=== PATIENT | male | born 1990 ===

== ENCOUNTER → 2024-03-09 13:22 | Outpatient (REF) | payer BC, SELFPAY | LOC: RAD 13:22 | PROVIDERS: ATTENDING PHYSICIAN Specialist; FAMILY PHYSICIAN Hospitalist | DX: N50.9 Disorder of male genital organs, unspecified (principal) | CPT/HCPCS: 76870; 93976 ==

== ENCOUNTER 2024-03-16 06:06 | Day surgery (SDC) | payer BC, SELFPAY ==
[2024-03-16] VITALS (13 sets, daily range): BP systolic 108–131; BP diastolic 58–77; BMI 24.4
[2024-03-16] MEDS: DILAUDID 0.5 MG IV (09:32)
[2024-03-16] MEDS: ROXICODONE 5 MG PO (11:20)
--- NOTE | 2024-03-16 11:23 | PTCARENOTE ---
Patient dressed. Patient was just given an Oxycodone for pain 09/15. Will monitor patient for 15 min then d/c.
== END 2024-03-16 11:38 | disposition home or self-care (01) ==
LOC: SDS 06:06
PROVIDERS: ATTENDING PHYSICIAN Specialist
DX: C62.92 Malignant neoplasm of left testis, unspecified whether descended or undescended (principal)
CPT/HCPCS: 54530; 88309; 88341; 88342

== ENCOUNTER → 2024-04-02 10:37 | Outpatient (REF) | payer BC, SELFPAY | LOC: HWRAD 10:37 | PROVIDERS: ATTENDING PHYSICIAN Specialist; FAMILY PHYSICIAN Hospitalist | DX: C62.90 Malignant neoplasm of unspecified testis, unspecified whether descended or undescended (principal) | CPT/HCPCS: 74177; Q9967 ==

== ENCOUNTER → 2024-04-24 12:48 | Outpatient (REF) | payer BC, SELFPAY | LOC: HWRAD 12:48 | PROVIDERS: ATTENDING PHYSICIAN Internal Medicine Hematology & Oncology; FAMILY PHYSICIAN Hospitalist | DX: C62.92 Malignant neoplasm of left testis, unspecified whether descended or undescended (principal) | CPT/HCPCS: 71250 ==

== ENCOUNTER → 2024-07-11 12:57 | Outpatient (REF) | payer BC, SELFPAY ==
[2024-07-11 15:47] LABS: % Basophils 0.5 % (0-2); % Eosinophils 2.6 % (0-6); % Immature Granulocytes 0.2 % (0-0.5); % Lymphocytes 38.3 % (20.5-51.1); % Monocytes 5.8 % (1.7-9.3); % Neutrophils 52.6 % (42.2-75.2); Absolute Eosinophils 0.1 10^3/uL (0-0.7); Absolute Lymphocytes 2.1 10^3/uL (1.2-3.4); Absolute Monocytes 0.3 10^3/uL (0.1-0.6); Absolute Neutrophils 2.9 10^3/uL (1.4-6.5); Hematocrit 43.3 % (39.0-52.0); Hemoglobin 14.6 g/dL (13.0-18.0); Mean Corp Hgb Conc. 33.7 g/dL (33.0-37.0); Mean Corpuscular Hgb 28.9 pg (27.0-31.0); Mean Corpuscular Volume 85.7 fL (80.0-94.0); Mean Platelet Volume 10.4 fL (7.4-10.4); Nucleated Red Blood Cells % 0 % (-); Platelet Count 244 10^3/uL (130-400); Red Blood Cell Count 5.05 10^6/uL (4.70-6.10); Red Cell Dist. Width 12.1 % (11.5-14.5); White Blood Cell Count 5.5 10^3/uL (4.8-10.8)
[2024-07-11 15:56] LABS: Albumin 4.5 g/dl (3.5-5.0); Carbon Dioxide 31 mmol/L (22-30); Total Bilirubin 0.6 mg/dl (0.2-1.3); Total Protein 7.4 g/dl (6.3-8.2); eGFR > 60.00
[2024-07-11 16:07] LABS: ALT (SGPT) 21 U/L (0-50); AST (SGOT) 23 U/L (17-59); Alkaline Phosphatase 74 U/L (38-126); Blood Urea Nitrogen 15 mg/dl (9-20); Calcium 9.9 mg/dl (8.4-10.2); Chloride 100 mmol/L (98-107); Glucose 79 mg/dl (70-99); Potassium 4.5 mmol/L (3.5-5.1); Sodium 139 mmol/L (135-145)
[2024-07-11 16:13] LABS: Beta HCG Quantitative < 2.39 mIU/ml
[2024-07-11 16:29] LABS: LDH 165 U/L (120-246)
[2024-07-11 16:38] LABS: AFP Male/Tumor Marker 3.16 ng/ml
== END ==
LOC: HWLAB 12:57
PROVIDERS: ATTENDING PHYSICIAN Internal Medicine Hematology & Oncology; FAMILY PHYSICIAN Hospitalist
DX: C62.92 Malignant neoplasm of left testis, unspecified whether descended or undescended (principal)
CPT/HCPCS: 36415; 80053; 82105; 83615; 84702; 85025

== ENCOUNTER → 2024-07-12 12:02 | Outpatient (REF) | payer BC, SELFPAY | LOC: RAD 12:02 | PROVIDERS: ATTENDING PHYSICIAN Internal Medicine Hematology & Oncology; FAMILY PHYSICIAN Hospitalist | DX: C62.92 Malignant neoplasm of left testis, unspecified whether descended or undescended (principal) | CPT/HCPCS: 74177; Q9967 ==

== ENCOUNTER → 2024-12-04 09:15 | Outpatient (REF) | payer BC, SELFPAY ==
[2024-12-04 11:46] LABS: Hematocrit 45.7 % (39.0-52.0); Hemoglobin 15.3 g/dL (13.0-18.0); Mean Corp Hgb Conc. 33.5 g/dL (33.0-37.0); Mean Corpuscular Volume 85.9 fL (80.0-94.0); Nucleated Red Blood Cells % 0 % (-); Platelet Count 236 10^3/uL (130-400); Red Cell Dist. Width 12.5 % (11.5-14.5)
[2024-12-04 12:12] LABS: ALT (SGPT) 19 U/L (0-50); AST (SGOT) 19 U/L (17-59); Albumin 4.9 g/dl (3.5-5.0); Alkaline Phosphatase 65 U/L (38-126); Blood Urea Nitrogen 13 mg/dl (9-20); Calcium 9.8 mg/dl (8.4-10.2); Carbon Dioxide 31 mmol/L (22-30); Chloride 103 mmol/L (98-107); Glucose 96 mg/dl (70-99); LDH 172 U/L (120-246); Potassium 4.5 mmol/L (3.5-5.1); Sodium 139 mmol/L (135-145); Total Protein 7.9 g/dl (6.3-8.2); eGFR > 60.00
[2024-12-04 12:26] LABS: Beta HCG Quantitative < 2.39 mIU/ml
[2024-12-04 12:47] LABS: AFP Male/Tumor Marker 3.32 ng/ml
== END ==
LOC: RAD 09:15
PROVIDERS: ATTENDING PHYSICIAN Internal Medicine Hematology & Oncology; FAMILY PHYSICIAN Hospitalist
DX: C62.92 Malignant neoplasm of left testis, unspecified whether descended or undescended (principal)
CPT/HCPCS: 36415; 74177; 80053; 82105; 83615; 84702; 85025; Q9967